=== PATIENT | male | born 1955 | race Caucasian/White ===

== ENCOUNTER → 2017-10-23 07:14 | Outpatient (CLI) | payer OTHER, SELFPAY ==
--- NOTE | 2017-10-23 07:14 | DT_ITS ---
This patient was seen during an EMR downtime October 21, 2017 - October 28, 2017. This patient may have a combination of paper and electronic documentation or all paper documentation. All documentation is viewable within the e-chart portion of [employer] for each patient visit.
[2017-10-28 11:32] LABS: ALB/GLOB Ratio 0.9 RATIO (0.9-2.4); AST(SGOT) 29 U/L (15-37); Alanine Aminotransfer ALT/SGPT 52 U/L (16-61); Albumin, Serum 3.5 g/dL (3.2-5.0); Alkaline Phosphatase 114 U/L (45-117); Anion Gap 10 (5-15); BUN 14 mg/dL (7-18); BUN/Creat Ratio 14.9 RATIO (10-20); Calcium,Total 8.6 mg/dL (8.5-10.1); Chloride 104 mmol/L (98-107); Cholesterol 201 mg/dL (200); Creatinine, Serum 0.94 mg/dL (0.70-1.30); EST Glomerular Filtration Rate 86 mL/min (>60); Est Glom Filt Rate - Afr Amer 104 mL/min (>60); Globulin 4.1 g/dL (2.2-4.2); Glucose 220 mg/dL (74-106); High Density Lipoprotein 32 mg/dL; Potassium 4.1 mmol/L (3.5-5.1); Protein, Total 7.6 g/dL (6.4-8.2); Sodium Level 139 mmol/L (136-145); Triglycerides 289 mg/dL; Very Low Density Lipoprotein 58 mg/dL (5-40)
== END ==
PROVIDERS: Family Provider Family Medicine; PCP Family Medicine; Visit Provider Family Medicine
DX: I10 Essential (primary) hypertension (principal)
CPT/HCPCS: 36415; 80053; 80061

== ENCOUNTER → 2017-11-01 07:00 | Outpatient (CLI) | payer OTHER, SELFPAY | PROVIDERS: Family Provider Family Medicine; PCP Family Medicine; Visit Provider Family Medicine | DX: E11.9 Type 2 diabetes mellitus without complications (principal) | CPT/HCPCS: 36415; 83036 ==

== ENCOUNTER → 2018-03-03 11:44 | Outpatient (CLI) | payer OTHER, SELFPAY ==
[2018-03-03 13:31] LABS: Hemoglobin A1c 7.1 % (4.2-6.3)
== END ==
PROVIDERS: Family Provider Family Medicine; PCP Family Medicine; Referring Provider Nurse Practitioner; Visit Provider Nurse Practitioner
DX: E11.9 Type 2 diabetes mellitus without complications (principal)
CPT/HCPCS: 36415; 83036

== ENCOUNTER → 2018-06-03 10:29 | Outpatient (CLI) | payer OTHER, SELFPAY ==
[2018-06-03 09:53] VITALS: BMI 37.0
[2018-06-03 12:07] LABS: Microalbumin,Random Urine 29.1 mg/L (NO RANGE EST.); Microalbumin:Creatinine Ratio 18.5 mg/g CRE (<30 mg/g CRE)
[2018-06-03 12:09] LABS: Hemoglobin A1c 8.2 % (4.2-6.3)
[2018-06-03 12:14] LABS: ALB/GLOB Ratio 0.9 RATIO (0.9-2.4); AST(SGOT) 25 U/L (15-37); Alanine Aminotransfer ALT/SGPT 43 U/L (16-61); Albumin, Serum 3.7 g/dL (3.2-5.0); Alkaline Phosphatase 118 U/L (45-117); Anion Gap 9 (5-15); BUN 19 mg/dL (7-18); Calcium,Total 9.3 mg/dL (8.5-10.1); Chloride 102 mmol/L (98-107); Creatinine, Serum 0.95 mg/dL (0.70-1.30); EST Glomerular Filtration Rate 85 mL/min (>60); Est Glom Filt Rate - Afr Amer 103 mL/min (>60); Globulin 4.3 g/dL (2.2-4.2); Glucose 156 mg/dL (74-106); Potassium 4.1 mmol/L (3.5-5.1); Sodium Level 138 mmol/L (136-145)
== END ==
PROVIDERS: Family Provider Family Medicine; PCP Family Medicine; Referring Provider Nurse Practitioner; Visit Provider Nurse Practitioner
DX: E11.65 Type 2 diabetes mellitus with hyperglycemia (principal)
CPT/HCPCS: 36415; 80053; 82043; 82570; 83036

== ENCOUNTER → 2019-01-06 | Outpatient (CLI) | payer OTHER, SELFPAY ==
[2019-01-06 08:20] VITALS: BMI 36.6
--- NOTE | 2019-01-06 09:12 | RAD_ITS ---
STUDY: X-RAY - PELVIS AND RIGHT HIP REASON FOR EXAM: Male, 63 years old. Right hip pain for 2 weeks duration TECHNIQUE: 3 views of the pelvis and hip. COMPARISON: None. FINDINGS: There is a non-specific bowel gas pattern. Normal visualized soft tissue structures. Intact bilateral iliac wings, sacroiliac joints and visualized sacrum. Intact bilateral superior and inferior pubic rami. Mild pubic symphysitis Normal bilateral ischial tuberosities. Mild osteoarthritis of the right hip joint RAD/Hip uni 4+ views with Pelvis IMPRESSION: Mild osteoarthritis of the right hip joint. No acute displaced fracture, or traumatic subluxation based on current assessment. Electronically Signed: Ray Gotti MD at 15:04 EDT Tel [phone], Service support ,
[2019-01-06 12:34] LABS: Uric Acid 7.5 mg/dL (3.5-7.2)
== END | disposition home or self-care (01) ==
PROVIDERS: Family Provider Family Medicine; PCP Family Medicine; Referring Provider Nurse Practitioner Family; Visit Provider Nurse Practitioner Family
DX: M25.551 Pain in right hip (principal)
CPT/HCPCS: 36415; 73503; 84550

== ENCOUNTER → 2019-01-07 | Outpatient (CLI) | payer OTHER, SELFPAY ==
[2019-01-07 14:38] VITALS: BMI 36.6
--- NOTE | 2019-01-07 14:53 | RAD_ITS ---
STUDY: X-RAY - LUMBOSACRAL SPINE REASON FOR EXAM: Male, 63 years old. Back pain. TECHNIQUE: 6 view(s) of the lumbosacral spine were obtained. COMPARISON: None FINDINGS: There is no evidence of fracture or dislocation in the lumbosacral spine. The vertebral body heights are well-maintained. There are mild multilevel degenerative changes with disc space narrowing throughout the lumbar spine. There are atherosclerotic calcifications noted in the aorta. RAD/L/S Spine Bending Flex/Ext IMPRESSION: No fracture or dislocation in the lumbosacral spine. Mild degenerative changes throughout the lumbar spine. Atherosclerosis. Electronically Signed: Chano Ratliff, at 20:36 EDT Tel , Service support ,
== END | disposition home or self-care (01) ==
LOC: HPRAD 14:52
PROVIDERS: Family Provider Family Medicine; PCP Family Medicine; Referring Provider Orthopaedic Surgery; Visit Provider Orthopaedic Surgery
DX: M54.41 Lumbago with sciatica, right side (principal)
CPT/HCPCS: 72120

== ENCOUNTER 2019-01-15 06:54 | Outpatient (RCR) | payer OTHER, SELFPAY ==
[2019-01-07 14:38] VITALS: BMI 36.6
--- NOTE | 2019-01-15 09:25 | HP.PTEVAL ---
Patient's Visit Information JULIUS DURANT Jr. is a 63 year old M referred to Physical Therapy by Omer Dowd DO with a diagnosis of R sided lumbar spine. Date of Evaluation: 01/15/19 Physical Therapist: Jan Wade DPT - Visit Plan Frequency: 2x /Week Duration: 4 Weeks Plan: Start with SKTC and prone on elbows, progressing ROM as tolerated. Add in modalities, progressing core stability exercises as tolerated. - Subjective Findings: Pt. is here today for his initial evaluaton with diagnosis of Low back pain on R side. Pt. reports having increased pain or ~3 weeks after getting into his bobcat. Pt. reports no exact mech of injury. Pt. reports no pain to the touch. Its deep down.' He reported having some tingling in his R leg, but not entirely sure. Pt. has not gone to the chiropractor, due to high levels of pain. Pt. reports having a recent injection which has reduced some of his symptoms. He is also scheduled for an MRI next week. 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 Pt. is having increasred difficulty with sleeping and pain in worse in the morning. Pt. is hopeful to reduce symptoms in order to get back to work and recreational activities without increase in symptoms. - Pain R side of lumbar spine Pain Intensity (Out of 10): 3 Pain Intensity Range: 1, 6 - Objective POSTURE: pt. is generally over wt. Pt. has generalized flexed posture. Pt. has normal hip heights. Pt. has equal wt. shift between bilateral LEs. PALPATION: Pt. has increased tenderness at L1/L2 and hypomobility noted. NEURO: normal throughout. ROM: LUMBAR SPINE: extension mod/max loss increase NW, fleixon mod/min loss increase NW, SB L min loss increase NW, rotaition min/nil loss NE. NHS tightness bilaterally NE. Tight hip flexors bilaterally. Pt. has normal hip IR/ER without increase in groin pain. MMT: Pt. is generally 4+/5 throughout bilaterally LEs, execpt knee- 5/5 throughout. GAIT: Pt. ambulates with increased fall off onto R side, no [place]. Pt. has mild increase in symptoms with ambulation. - Special Tests L/S Slump test left side: Negative L/S Slump test right side: Positive L/S Left Straight Leg Raise: Negative L/S Right Straight Leg Raise: Positive - Goals Goal 1:: Pt. to be I with HEP. Goal Time Frame: 4-6 Weeks Goal 2:: Pt. to have increased lumbar spine ROM by 25% in all directions without increase in symptoms. Goal Time Frame: 4-6 Weeks Goal 3:: Pt. to have increased core and hip strength by 1/2 grade of all effected musculature. Goal Time Frame: 4-6 Weeks Goal 4:: Pt. to sleep without increase in symptoms. Goal Time Frame: 4-6 Weeks Goal 5:: Pt. to complete all work and recreational activities. Goal Time Frame: 4-6 Weeks - Rehabilitation Potential Physical Therapy Diagnosis: Pt. has signs and symptoms consistent with R sided lumbar spine pain. Pt. appears to have increased pain with extension, but did improve with consistent extension movements with centralization. Pt. had + slump and did have centralization of symptoms with prone on elbows, but did peripheralize with REIL. Pt. would benefit from PT to increase lumbar ROM, progressing to core stability exercises. Rehabilitation Potential: Good - Anticipated Interventions Patient/Client Instruction: Educate patient on: Condition, Plan of Care, Risk Factors, Benefits of Fitness Program For the Purpose of:: To facilitate caregiver knowledge, To improve self management, To prevent re-injury, To improve ability to perform tasks related to life management, To improve tolerance to ADL's Therapeutic Exercise to Include: Strength training, Power training, Endurance training, Postural training, Flexibilty training, Passive ROM, Active ROM, Dynamic Lumbar Stabilization, Prerna Exercises For the Purpose of:: To decrease pain, To decrease swelling/inflammation, To increase ROM, To improve nutrient delivery to tissue, To increase oxygenation perfusion, To improve ability to perform ADL's, To improve health of tissue, To decrease soft tissue restriction, To increase flexibility/ROM Manual Therapy Techniques to Include: Mobilization, Functional dry needling, Soft tissue mobilization For the Purpose of:: To decrease pain, To increase ROM, To improve nutrient delivery to tissue, To increase oxygenation perfusion IF ES: Yes Other electric stimulation: Yes Cryotherapy (ice pack, ice massage): Yes For the Purpose of:: To decrease pain, To decrease swelling/inflammation, To increase ROM Thank you for the opportunity to evaluate your patient. For Medicare and Medicare HMO plans, please review the plan of care and approve it. It will need to be FAXED BACK to us at [phone] for Medicare purposes. For Medicare only, by signing this I certify the plan of care. Please let me know if there are questions or concerns regarding this plan of care. Physician Signature: Date:
--- NOTE | 2019-06-23 09:55 | HP.PT.NRP ---
HP - Discharge Summary (1) - Patient Information JULIUS DURANT Jr. was seen in my office for initial evaluation on 01/15/19. The following Plan of Care was established for this patient: Initial Frequency: 2x /Week Initial Duration: 4 Weeks - Anticipated Interventions Patient/Client Instruction: Educate patient on: Condition, Plan of Care, Risk Factors, Benefits of Fitness Program For the Purpose of:: To facilitate caregiver knowledge, To improve self management, To prevent re-injury, To improve ability to perform tasks related to life management, To improve tolerance to ADL's Therapeutic Exercise to Include: Strength training, Power training, Endurance training, Postural training, Flexibilty training, Passive ROM, Active ROM, Dynamic Lumbar Stabilization, Prerna Exercises For the Purpose of:: To decrease pain, To decrease swelling/inflammation, To increase ROM, To improve nutrient delivery to tissue, To increase oxygenation perfusion, To improve ability to perform ADL's, To improve health of tissue, To decrease soft tissue restriction, To increase flexibility/ROM Manual Therapy Techniques to Include: Mobilization, Functional dry needling, Soft tissue mobilization For the Purpose of:: To decrease pain, To increase ROM, To improve nutrient delivery to tissue, To increase oxygenation perfusion IF ES: Yes Other electric stimulation: Yes Cryotherapy (ice pack, ice massage): Yes For the Purpose of:: To decrease pain, To decrease swelling/inflammation, To increase ROM This patient was last seen in our office 01/15/19. Pertinent comments regarding their Physical therapy will appear below: Pt. was seen for his low back pain. Pt. came to his evaluation and has not been back since. Pt. will be DC from PT at this point in time. At this point I will be discontinuing this patient from physical therapy. I would be happy to see this patient again in the future if found appropriate by the physician. Thank you! Jan Wade DPT
== END 2019-01-15 19:00 | disposition home or self-care (01) ==
LOC: PT 06:54
PROVIDERS: Family Provider Family Medicine; PCP Family Medicine; Referring Provider Orthopaedic Surgery; Visit Provider Orthopaedic Surgery
DX: M54.5 Low back pain (principal)
CPT/HCPCS: 97161

== ENCOUNTER → 2019-01-20 | Outpatient (CLI) | payer OTHER, SELFPAY ==
[2019-01-07 14:38] VITALS: BMI 36.6
[2019-01-20 10:59] VITALS: BMI 36.6
--- NOTE | 2019-01-20 13:19 | VDLE_ITS ---
Reason For Study: pain and swelling RIGHT LEFT CFV is compressible, spontaneous, phasic, GSV is normal. competent and demonstrates normal CFV is compressible, spontaneous, phasic, augmentation. competent, and demonstrates normal augmentation. FV is compressible, spontaneous, phasic, competent and demonstrates normal augmentation. POP V is compressible, spontaneous, phasic, competent and demonstrates normal augmentation. T/P Trunk is compressible. PTV is compressible. LT PerV is compressible. Interpretation Summary Deep veins of the left lower extremity are patent and compressible segmentally. There is no evidence of left lower extremity deep vein thrombosis. Valvular competence appears intact within the proximal deep venous system on the left . The left great saphenous vein appears patent and compressible segmentally. Ordering Physician: Reggie Allen Performed By: Carl Vila RVT
--- NOTE | 2019-01-20 16:55 | MRI_ITS ---
HISTORY: Low back pain and right-sided lumbar radiculopathy 3 weeks COMPARISON: Lumbar radiographs 01/07/2019 TECHNIQUE: Multisequence multiplanar MR imaging of the lumbar spine was performed per department protocol without IV gadolinium. # of images incl. paperwork: 139 FINDINGS: VERTEBRA: Lumbar alignment is within normal limits . No acute fracture or subluxation. Lumbar vertebral bodies are normal in height. Mild anterior marginal osteophytes from L2-L5. Benign osseous hemangiomas within T12, L1, and L2 vertebra with the largest within the L1 vertebra measuring 1.0 cm. No focal marrow signal abnormality to suggest a pathologic process. CONUS: The conus is identified opposite the T12-L1 level and is normal in morphology and signal characteristics. DISCS: Mild disc space narrowing at L4-L5 and L5-S1 levels. Moderate disc desiccation throughout the lumbar spine. LEVELS: T12-L1: No disc bulge or disc protrusion. No canal or neural foraminal stenosis. L1-2: No disc bulge or disc protrusion. No canal or neural foraminal stenosis. L2-3: Mild disc bulge with less than 1 mm effacement of the ventral thecal sac. No superimposed disc protrusion. No canal or foraminal stenosis. L3-4: Mild disc bulge without significant effacement of the ventral thecal sac. No superimposed disc protrusion. No canal or foraminal stenosis. Mild bilateral facet joint arthropathy. L4-5: Right sided disc extrusion measuring up to 10 mm TV, 7 mm AP, and 25 mm CC dimensions extending cephalad to the superior endplate level of L4, combined with moderate bilateral facet joint arthropathy and ligamentum flavum redundancy, results in severe canal stenosis and severe right foraminal stenosis at L4-L5 and moderate canal stenosis throughout the majority of the L4 vertebral body level. Severe effacement of the traversing right L4 nerve root is seen at the mid L4 vertebral body level. No left foraminal stenosis. L5-S1: No disc bulge or disc protrusion. No canal or neural foraminal stenosis. SOFT TISSUES: Paravertebral soft tissues show no gross signal abnormalities. MRI/Spine Lumbar (Routine) IMPRESSION: 1. Large right-sided disc extrusion (10 x 7 x 25 mm) at the L4-L5 level, which extends cephalad to the right superior endplate level of L4 resulting in severe canal and severe right foraminal stenosis at the L4-L5 level; and moderate canal stenosis throughout the L4 vertebral body level, and severe effacement of the traversing right L4 nerve root at the mid L4 vertebral body level. at 2111 Reported and signed by: Ran Novak MD Electronically Signed: Ran Novak MD at 21:09 EDT Tel , Service support ,
== END | disposition home or self-care (01) ==
PROVIDERS: Family Provider Family Medicine; PCP Family Medicine; Referring Provider Nurse Practitioner Family; Visit Provider Nurse Practitioner Family
DX: M79.605 Pain in left leg (principal); M79.89 Other specified soft tissue disorders; M54.41 Lumbago with sciatica, right side
CPT/HCPCS: 72148; 93971

== ENCOUNTER → 2019-04-29 10:07 | Outpatient (CLI) | payer OTHER, SELFPAY ==
[2019-04-29 09:49] VITALS: BMI 36.6
[2019-04-29 12:28] LABS: ALB/GLOB Ratio 0.9 RATIO (0.9-2.4); AST(SGOT) 27 U/L (15-37); Alanine Aminotransfer ALT/SGPT 54 U/L (16-61); Albumin, Serum 3.7 g/dL (3.2-5.0); Alkaline Phosphatase 102 U/L (45-117); Anion Gap 6 (5-15); BUN 20 mg/dL (7-18); BUN/Creat Ratio 18.7 RATIO (10-20); Calcium,Total 9.2 mg/dL (8.5-10.1); Chloride 104 mmol/L (98-107); Creatinine, Serum 1.07 mg/dL (0.70-1.30); EST Glomerular Filtration Rate 74 mL/min (>60); Est Glom Filt Rate - Afr Amer 90 mL/min (>60); Globulin 3.9 g/dL (2.2-4.2); Glucose 212 mg/dL (74-106); Potassium 3.9 mmol/L (3.5-5.1); Protein, Total 7.6 g/dL (6.4-8.2); Sodium Level 138 mmol/L (136-145)
[2019-04-29 12:39] LABS: Microalbumin,Random Urine 9.5 mg/L (NO RANGE EST.); Microalbumin:Creatinine Ratio 22.8 mg/g CRE (<30 mg/g CRE)
== END ==
PROVIDERS: Family Provider Family Medicine; PCP Family Medicine; Visit Provider Family Medicine
DX: E11.9 Type 2 diabetes mellitus without complications (principal); I10 Essential (primary) hypertension
CPT/HCPCS: 36415; 80053; 82043; 82570

== ENCOUNTER → 2019-10-29 | Outpatient (CLI) | payer OTHER, SELFPAY ==
[2019-10-29 09:15] VITALS: BMI 36.6
== END | disposition home or self-care (01) ==
PROVIDERS: PCP Family Medicine; Referring Provider Family Medicine; Visit Provider Family Medicine
DX: R35.0 Frequency of micturition (principal)
CPT/HCPCS: 36415; 84153

== ENCOUNTER → 2020-08-02 08:53 | Outpatient (CLI) | payer OTHER, SELFPAY ==
[2020-08-02 08:31] VITALS: BMI 36.6
[2020-08-02 13:53] LABS: ALB/GLOB Ratio 0.9 RATIO (0.9-2.4); AST(SGOT) 34 U/L (15-37); Alanine Aminotransfer ALT/SGPT 75 U/L (16-61); Albumin, Serum 3.7 g/dL (3.2-5.0); Alkaline Phosphatase 111 U/L (45-117); Anion Gap 9 (5-15); BUN 19 mg/dL (7-18); BUN/Creat Ratio 14.4 RATIO (10-20); Calcium,Total 9.6 mg/dL (8.5-10.1); Chloride 103 mmol/L (98-107); Cholesterol 201 mg/dL (200); Creatinine, Serum 1.32 mg/dL (0.70-1.30); EST Glomerular Filtration Rate 58 mL/min (>60); Est Glom Filt Rate - Afr Amer 70 mL/min (>60); Glucose 260 mg/dL (74-106); High Density Lipoprotein 35 mg/dL; Potassium 4.5 mmol/L (3.5-5.1); Protein, Total 7.7 g/dL (6.4-8.2); Sodium Level 137 mmol/L (136-145); Triglycerides 370 mg/dL; Very Low Density Lipoprotein 74 mg/dL (5-40)
== END ==
PROVIDERS: PCP Family Medicine; Referring Provider Family Medicine; Visit Provider Family Medicine
DX: E11.9 Type 2 diabetes mellitus without complications (principal)
CPT/HCPCS: 36415; 80053; 80061

== ENCOUNTER → 2020-09-12 | Outpatient (CLI) | payer OTHER, SELFPAY ==
[2020-09-12 12:57] VITALS: BMI 35.2
[2020-09-12 13:42] LABS: Bacteria 0 SEEN /hpf (None Seen); Mucous, Urine 0 SEEN /hpf (<or=2+); Red Blood Cells-Urine 0 SEEN /hpf (0-5); Squamous Epithelial Cells - UA 0 SEEN /hpf (0-5); White Blood Cells 0 SEEN /hpf (0-5)
[2020-09-12 15:26] LABS: Color, Urine Yellow (Yellow); Glucose, Dipstick 100 mg/dl (Normal); Ketone-Dipstick Negative (Negative); Leukocyte Esterase-Dipstick Negative /ul (Negative); Nitrite-Dipstick Negative (Negative); Occult Blood-Urine Negative /ul (Negative); Protein-Dipstick Negative (Negative); Urine Bilirubin Dipstick Negative (Negative); Urine Clarity Clear (Clear); Urine Urobilinogen Normal (Normal)
== END | disposition home or self-care (01) ==
PROVIDERS: PCP Family Medicine; Visit Provider Physician Assistant
DX: R10.9 Unspecified abdominal pain (principal)
CPT/HCPCS: 81001

== ENCOUNTER → 2020-09-16 07:14 | Outpatient (CLI) | payer OTHER, SELFPAY ==
[2020-09-12 12:57] VITALS: BMI 35.2
--- NOTE | 2020-09-16 07:20 | CT_ITS ---
STUDY: CT ABDOMEN AND PELVIS WITHOUT CONTRAST REASON FOR EXAM: Male, 64 years old. Left flank pain, R/O Kidney Stone RADIATION DOSAGE (If Supplied By Facility): CTDIvol = ( 20.59 ) mGy, DLP = ( 1090.65 ) mGycm TECHNIQUE: Transaxial images were obtained from the dome of the diaphragm to the symphysis pubis without oral contrast, and without intravenous contrast. Sagittal and coronal images were reconstructed. Individualized dose optimization techniques were used for this CT. COMPARISON: None. FINDINGS: The visualized lung bases are unremarkable. Normal liver. Normal gallbladder and extrahepatic biliary system. Normal spleen. Normal pancreas. Normal bilateral adrenal glands. Unremarkable right kidney. There is moderate hydroureteronephrosis on the left. There is an 8 mm calcification at the distal ureter adjacent to the urinary bladder (axial image #152 series 2) Normal visualized stomach. Normal small intestine. There are multiple colonic diverticula consistent with diverticulosis. The appendix is visualized and appears normal. There is atherosclerotic calcifications of the abdominal aorta, Normal urinary bladder. There is a small umbilical hernia containing fat. There are diffuse degenerative changes of the visualized lumbar spine. CT/Abdomen/Pelvis without Cont IMPRESSION: 8mm distal ureteral calculus with moderate hydroureteronephrosis on the left. Diverticulosis. Electronically Signed: Rosa Cortés MD at 8:15 EDT Tel , Service support ,
== END ==
PROVIDERS: PCP Family Medicine; Referring Provider Physician Assistant; Visit Provider Physician Assistant
DX: R10.9 Unspecified abdominal pain (principal)
CPT/HCPCS: 74176

== ENCOUNTER → 2020-09-27 14:54 | Outpatient (CLI) | payer OTHER, SELFPAY ==
[2020-09-12 12:57] VITALS: BMI 35.2
== END ==
PROVIDERS: PCP Family Medicine; Referring Provider Urology; Visit Provider Urology
DX: Z01.812 Encounter for preprocedural laboratory examination (principal); Z20.822 Contact with and (suspected) exposure to COVID-19
CPT/HCPCS: 87426; C9803

== ENCOUNTER → 2020-10-03 08:11 | Outpatient (CLI) | payer OTHER, SELFPAY ==
[2020-09-12 12:57] VITALS: BMI 35.2
--- NOTE | 2020-10-03 08:36 | RAD_ITS ---
STUDY: X-RAY - ABDOMEN/PELVIS REASON FOR EXAM: Male, 65 years old. Flank pain TECHNIQUE: Two AP supine views of the abdomen and pelvis. COMPARISON: None. FINDINGS: Normal visualized lung bases. There is an unremarkable bowel gas pattern. There is no demonstrated free abdominal air. The visualized liver, spleen and kidneys are grossly normal in size and morphology. There are calcified phleboliths in the pelvis. There are diffuse degenerative changes of the visualized lumbar spine. RAD/Abdomen Single View IMPRESSION: No demonstrated calcifications overlying either renal shadow, or along the expected course of either ureter. Stable lucent centered calcification within the right hemipelvis, likely phlebolith Electronically Signed: Jeremiah Taylor MD at 10:08 EDT , Service support ,
[2020-10-03 11:05] LABS: Anion Gap 10 (5-15); BUN 42 mg/dL (7-18); BUN/Creat Ratio 22.6 RATIO (10-20); Calcium,Total 9.3 mg/dL (8.5-10.1); Chloride 100 mmol/L (98-107); Creatinine, Serum 1.86 mg/dL (0.70-1.30); EST Glomerular Filtration Rate 39 mL/min (>60); Est Glom Filt Rate - Afr Amer 47 mL/min (>60); Glucose 334 mg/dL (74-106); Potassium 4.4 mmol/L (3.5-5.1); Sodium Level 134 mmol/L (136-145)
== END ==
PROVIDERS: PCP Family Medicine; Referring Provider Urology; Visit Provider Urology
DX: N20.1 Calculus of ureter (principal)
CPT/HCPCS: 36415; 74018; 80048

== ENCOUNTER → 2020-10-11 06:51 | Outpatient (CLI) | payer OTHER, SELFPAY ==
[2020-09-12 12:57] VITALS: BMI 35.2
--- NOTE | 2020-10-11 06:56 | CT_ITS ---
STUDY: CT ABDOMEN AND PELVIS WITHOUT CONTRAST REASON FOR EXAM: Male, 65 years old. CALCULUS OF URETER RADIATION DOSAGE (If Supplied By Facility): CTDIvol = ( 29.89 ) mGy, DLP = ( 1538.21 ) mGycm TECHNIQUE: Transaxial images were obtained from the dome of the diaphragm to the symphysis pubis without oral contrast, and without intravenous contrast. Sagittal and coronal images were reconstructed. Individualized dose optimization techniques were used for this CT. COMPARISON: CT scan 09/16/2020. FINDINGS: There is a calcified pulmonary granuloma in the right middle lobe. The visualized portions of the heart are within normal limits. Normal liver. Normal gallbladder and extrahepatic biliary system. Normal spleen. Normal pancreas. Normal bilateral adrenal glands. Normal right kidney. Normal left kidney. Normal visualized stomach. Normal small intestine. There are multiple colonic diverticula consistent with diverticulosis. The appendix is visualized on axial images 110-121 and it appears normal. There is diffuse atherosclerotic calcification of the abdominal aorta, without a demonstrated aneurysm. Normal inferior vena cava. Normal retroperitoneum. Normal urinary bladder. There is an umbilical hernia which contains fat, but no bowel. There multilevel degenerative changes of the lumbar spine. CT/Abdomen/Pelvis without Cont IMPRESSION: Colonic diverticulosis, without evidence for acute diverticulitis. Atherosclerosis. Umbilical hernia contains fat, but no bowel. No evidence for acute pathology. No demonstrated urinary calculus or hydronephrosis. Electronically Signed: Jd Burks MD at 7:56 EDT , Service support ,
[2020-10-11 10:08] LABS: Anion Gap 10 (5-15); BUN 30 mg/dL (7-18); BUN/Creat Ratio 16.3 RATIO (10-20); Calcium,Total 9.6 mg/dL (8.5-10.1); Chloride 98 mmol/L (98-107); Creatinine, Serum 1.84 mg/dL (0.70-1.30); EST Glomerular Filtration Rate 39 mL/min (>60); Est Glom Filt Rate - Afr Amer 48 mL/min (>60); Glucose 330 mg/dL (74-106); PSA,Total- Diagnostic 0.26 ng/mL (0.0-4.0); Potassium 4.4 mmol/L (3.5-5.1); Sodium Level 135 mmol/L (136-145)
== END ==
PROVIDERS: PCP Family Medicine; Referring Provider Urology; Visit Provider Urology
DX: N20.1 Calculus of ureter (principal)
CPT/HCPCS: 36415; 74176; 80048; 84153

== ENCOUNTER → 2020-11-22 09:36 | Outpatient (CLI) | payer OTHER, SELFPAY ==
[2020-11-22 08:54] VITALS: BMI 35.2
[2020-11-22 12:21] LABS: Anion Gap 8 (5-15); BUN 26 mg/dL (7-18); BUN/Creat Ratio 17.7 RATIO (10-20); Calcium,Total 9.6 mg/dL (8.5-10.1); Chloride 102 mmol/L (98-107); Creatinine, Serum 1.47 mg/dL (0.70-1.30); EST Glomerular Filtration Rate 51 mL/min (>60); Est Glom Filt Rate - Afr Amer 62 mL/min (>60); Glucose 269 mg/dL (74-106); Potassium 4.5 mmol/L (3.5-5.1); Sodium Level 134 mmol/L (136-145)
== END ==
PROVIDERS: PCP Family Medicine; Visit Provider Family Medicine
DX: N18.1 Chronic kidney disease, stage 1 (principal)
CPT/HCPCS: 36415; 80048

== ENCOUNTER → 2021-02-22 08:58 | Outpatient (CLI) | payer OTHER, SELFPAY ==
[2021-02-22 13:20] LABS: Hemoglobin A1c 10.3 % (3.8-5.6)
== END ==
PROVIDERS: PCP Family Medicine; Referring Provider Family Medicine; Visit Provider Family Medicine
DX: E11.8 Type 2 diabetes mellitus with unspecified complications (principal)
CPT/HCPCS: 36415; 83036

== ENCOUNTER 2021-03-15 10:02 | Outpatient (RCR) | payer OTHER, SELFPAY | END 2021-03-19 23:59 | LOC: DC 10:02 | PROVIDERS: PCP Family Medicine; Visit Provider Family Medicine | DX: E11.8 Type 2 diabetes mellitus with unspecified complications (principal); E66.9 Obesity, unspecified; Z68.35 Body mass index [BMI] 35.0-35.9, adult | CPT/HCPCS: G0108 ==

== ENCOUNTER 2021-04-12 09:30 | Outpatient (RCR) | payer OTHER, SELFPAY | END 2021-04-18 23:59 | LOC: DC 09:30 | PROVIDERS: PCP Family Medicine; Visit Provider Family Medicine | DX: E11.8 Type 2 diabetes mellitus with unspecified complications (principal); E66.9 Obesity, unspecified; Z68.35 Body mass index [BMI] 35.0-35.9, adult | CPT/HCPCS: 97802; G0108; G0270 ==

== ENCOUNTER 2021-05-25 10:00 | Outpatient (RCR) | payer OTHER, SELFPAY | END 2021-06-19 23:59 | LOC: DC 10:00 | PROVIDERS: PCP Family Medicine; Visit Provider Family Medicine | DX: Z68.35 Body mass index [BMI] 35.0-35.9, adult (principal); E11.8 Type 2 diabetes mellitus with unspecified complications; E66.9 Obesity, unspecified; Z71.3 Dietary counseling and surveillance | CPT/HCPCS: 97803; G0108 ==

== ENCOUNTER 2021-07-11 09:30 | Outpatient (RCR) | payer OTHER, SELFPAY | END 2021-07-17 23:59 | LOC: DC 09:30 | PROVIDERS: PCP Family Medicine; Referring Provider Family Medicine; Visit Provider Family Medicine | DX: E11.8 Type 2 diabetes mellitus with unspecified complications; E66.9 Obesity, unspecified; Z68.35 Body mass index [BMI] 35.0-35.9, adult | CPT/HCPCS: 97803; G0108 ==

== ENCOUNTER 2021-08-15 08:20 | Outpatient (RCR) | payer OTHER, SELFPAY | END 2021-08-17 23:59 | LOC: DC 08:20 | PROVIDERS: PCP Family Medicine; Referring Provider Family Medicine; Visit Provider Family Medicine | DX: E11.8 Type 2 diabetes mellitus with unspecified complications; E66.9 Obesity, unspecified; Z68.35 Body mass index [BMI] 35.0-35.9, adult | CPT/HCPCS: 97803 ==

== ENCOUNTER → 2022-02-01 | Outpatient (CLI) | payer OTHER, SELFPAY ==
[2022-02-01 13:12] LABS: Microalbumin,Random Urine < 5.0 mg/L (NO RANGE EST.)
[2022-02-01 13:17] LABS: ALB/GLOB Ratio 0.8 RATIO (0.9-2.4); AST(SGOT) 17 U/L (15-37); Alanine Aminotransfer ALT/SGPT 35 U/L (16-61); Albumin, Serum 3.6 g/dL (3.2-5.0); Alkaline Phosphatase 106 U/L (45-117); Anion Gap 7 (5-15); BUN 25 mg/dL (7-18); BUN/Creat Ratio 18.2 RATIO (10-20); Calcium,Total 9.5 mg/dL (8.5-10.1); Chloride 101 mmol/L (98-107); Cholesterol 202 mg/dL (200); Creatinine, Serum 1.37 mg/dL (0.70-1.30); EST Glomerular Filtration Rate 55 mL/min (>60); Est Glom Filt Rate - Afr Amer 67 mL/min (>60); Globulin 4.3 g/dL (2.2-4.2); Glucose 183 mg/dL (74-106); High Density Lipoprotein 34 mg/dL; Potassium 4.8 mmol/L (3.5-5.1); Protein, Total 7.9 g/dL (6.4-8.2); Sodium Level 135 mmol/L (136-145); Triglycerides 423 mg/dL
== END | disposition home or self-care (01) ==
LOC: BIMLAB 08:56
PROVIDERS: PCP Family Medicine; Referring Provider Family Medicine; Visit Provider Family Medicine
DX: E11.8 Type 2 diabetes mellitus with unspecified complications (principal); I10 Essential (primary) hypertension
CPT/HCPCS: 36415; 80053; 80061; 82043; 82570

== ENCOUNTER → 2023-02-06 | Outpatient (CLI) | payer OTHER, SELFPAY ==
[2023-02-06 13:07] LABS: ALB/GLOB Ratio 1.1 RATIO (0.9-2.4); AST(SGOT) 15 U/L (15-37); Alanine Aminotransfer ALT/SGPT 28 U/L (16-61); Albumin, Serum 3.8 g/dL (3.2-5.0); Alkaline Phosphatase 103 U/L (45-117); Anion Gap 6 (5-15); BUN 31 mg/dL (7-18); BUN/Creat Ratio 21.2 RATIO (10-20); Calcium,Total 9.6 mg/dL (8.5-10.1); Chloride 101 mmol/L (98-107); Cholesterol 169 mg/dL (200); Creatinine, Serum 1.46 mg/dL (0.70-1.30); EST Glomerular Filtration Rate 51 mL/min (>60); Est Glom Filt Rate - Afr Amer 62 mL/min (>60); Globulin 3.6 g/dL (2.2-4.2); Glucose 208 mg/dL (74-106); High Density Lipoprotein 37 mg/dL; Potassium 4.7 mmol/L (3.5-5.1); Protein, Total 7.4 g/dL (6.4-8.2); Sodium Level 135 mmol/L (136-145); Triglycerides 379 mg/dL; Very Low Density Lipoprotein 76 mg/dL (5-40)
== END | disposition home or self-care (01) ==
LOC: BIMLAB 09:25
PROVIDERS: PCP Family Medicine; Referring Provider Family Medicine; Visit Provider Family Medicine
DX: I10 Essential (primary) hypertension (principal); E11.9 Type 2 diabetes mellitus without complications
CPT/HCPCS: 36415; 80053; 80061

== ENCOUNTER → 2023-08-06 | Outpatient (CLI) | payer OTHER, SELFPAY ==
[2023-08-06 12:34] LABS: Anion Gap 8 (5-15); BUN 25 mg/dL (7-18); BUN/Creat Ratio 18.2 RATIO (10-20); Calcium,Total 9.7 mg/dL (8.5-10.1); Chloride 101 mmol/L (98-107); Creatinine, Serum 1.37 mg/dL (0.70-1.30); EST Glomerular Filtration Rate 55 mL/min (>60); Est Glom Filt Rate - Afr Amer 67 mL/min (>60); Glucose 286 mg/dL (74-106); Potassium 4.5 mmol/L (3.5-5.1); Sodium Level 137 mmol/L (136-145)
== END | disposition home or self-care (01) ==
LOC: BIMLAB 08:48
PROVIDERS: PCP Family Medicine; Visit Provider Family Medicine
DX: N18.1 Chronic kidney disease, stage 1 (principal)
CPT/HCPCS: 36415; 80048

== ENCOUNTER 2024-02-18 07:04 | Day surgery (SDC) | payer OTHER, SELFPAY ==
[2024-02-18] VITALS (9 sets, daily range): BP systolic 80–126; BP diastolic 46–79; PULSE 58–71; RESP 16–18; TEMP 36.1–36.6; O2SAT 95–99; BMI 33.8
[2024-02-18] MEDS: Lactated Ringers 1,000 ML 15 ML IV (07:33)
--- NOTE | 2024-02-18 07:41 | PCM.PRE.AN2 ---
ASA Classification* ASA Classification ASA Classification: 3 Assessment & Plan Anesthesia* Anesthesia Assessment Anesthesia Assessment: Discussed sedation and/or anesthesia options, risks, benefits, and alternatives with patient/parents/legal guardian/POA. Questions invited. The patient/parents/legal guardian/POA seems to understand and agrees to proceed with anesthesia plan. Reviewed the physical assessment, medical history, allergy history and patient home medications list prior to surgery/procedure/anesthetic and documented any changes. Performed airway and anesthesia risk assessments. Anesthesia Type Anesthesia Type: MAC (see written pre anesthesia record for full assessment) Anesthesia Focused Assessment* Temperature: 97.2 F Pulse Rate: 65 Blood Pressure: 126/79 Respiratory Rate: 18 Pulse Ox: 98 Airway Assessment Mouth opens: >3 cm Mallampati Score: II Focused Labs Anesthesia Preop lab: CBC WBC 7.0 k/mm3 (4.4-11.0) 07/17/12 12:10 RBC 5.11 M/mm3 (4.6-6.2) 07/17/12 12:10 Hgb 15.2 g/dl (13.0-16.5) 07/17/12 12:10 Hct 45.6 % (40-54) 07/17/12 12:10 Plt Count 240 K/mm3 (150-450) 07/17/12 12:10 CHEMISTRY Potassium 4.5 mmol/L (3.5-5.1) 08/06/23 08:48 Sodium 137 mmol/L (136-145) 08/06/23 08:48 BUN 25 mg/dL (7-18) H 08/06/23 08:48 Creatinine 1.37 mg/dL (0.70-1.30) H 08/06/23 08:48 Glucose 286 mg/dL (74-106) H 08/06/23 08:48 COAG Pre-Assessment Diagnosis/Proposed Procedure Planned Operative Procedure(s): CSCOPE Anesthesia History Anesthesia History - special needs 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 When Was Last Pacemaker Check QUESTION #4 FULL TEXT: You/Your Family Experience fever (hyperthermia) with Anesthesia Last Oral Intake Last Oral intake: Last Oral Intake NPO since Meds taken in AM with sips of Yes 02/18/24 07:34 water? Meds patient instructed to take am of surgery PONV PONV - special needs child caregiver: PONV - special needs child caregiver Female No 02/14/24 10:00 HX of Motion Sickness Yes 02/14/24 10:00 HX of N/V After Surgery No 02/14/24 10:00 Non-Smoker Yes 02/14/24 10:00 Duration of Surgery greater No 02/14/24 10:00 than 60 minutes Number of Risk Factors 2 02/14/24 10:00 PONV Score Moderate Risk 02/14/24 10:00 Height & Weight Height & Weight: Anesthesia: Height & Weight Height 5 ft 9 in 02/18/24 07:34 Weight: 103.963 kg 02/18/24 07:34 Body Mass Index (BMI) 33.8 02/18/24 07:34 Respiratory Assessment Respiratory Assessment - special needs child caregiver: Respiratory Tract Infection Hx - special needs child caregiver Hx Respiratory Tract Infection No 02/14/24 10:00 STOP Sleep Apnea STOP Sleep Apnea - special needs child caregiver: STOP Sleep Apnea - special needs child caregiver Hx Hypertension Yes: CONTROLLED WITH MED 02/14/24 10:00 Hx Sleep Apnea Yes 02/14/24 10:00 CPAP Yes 02/14/24 10:00 BIPAP No 02/14/24 10:00 Do you snore loudly (louder than talking or can be heard Do you often feel tired/ fatigued/ sleepy during daytime? Has anyone observed you stop breathing during sleep? STOP Results Positive 02/14/24 10:00 QUESTION #5 FULL TEXT : Do you snore loudly (louder than talking or can be heard through closed doors)? 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 Specify any problems Hx of Preganancy in last 3 N/A 02/14/24 10:00 Months Nurse Filling Out Transfusion NBUCHER 02/14/24 10:00 & Questions: Date: 02/14/24 02/14/24 10:00 Time: 10:02 02/14/24 10:00 Patient unable to answer at this time (ie. confused, unrespo /Reproduction History /Reproductive History - special needs child caregiver: /Reproductive Hx- special needs child caregiver Hx Now Gestational Age (in weeks): EDC: Hx Hx Para Hx Section SAB Active Medications Active Medications: Current Medications Generic Name Dose Route Start Last Admin Trade Name Freq PRN Reason Stop Dose Admin Lactated Ringer's 1,000 mls @ 15 mls/hr 02/18/24 07:15 02/18/24 07:33 IV 15 mls/hr .Q48H MARYCHUY Administration PFSH Medical History Wears glasses Gout High cholesterol Kidney stones Non-smoker CPAP (continuous positive airway pressure) dependence Sleep apnea Asthma Injury of back Stroke (~2002) Diabetes Hypertension Anxiety Home Medications ?Medication ?Instructions ?Recorded ?Last Taken ?Type aspirin 325 mg tablet 325 mg PO DAILY 04/29/19 02/13/24 History cholecalciferol (vitamin D3) 25 125 mcg PO DAILY 02/01/22 02/17/24 History mcg (1,000 unit) capsule metformin 500 mg tablet 250 mg (1/2 x 500 mg) PO QHS #90 08/14/22 02/16/24 Rx tabs gabapentin 300 mg capsule See Rx Instructions .Route 03/19/23 02/17/24 Rx .COMPLEX #30 caps rosuvastatin 10 mg tablet 10 mg PO DAILY #90 tabs 11/14/23 02/17/24 Rx lisinopril 20 mg tablet 20 mg PO DAILY #90 tabs 12/09/23 02/18/24 Rx metoprolol succinate 50 mg 50 mg PO QDAY #90 tabs 12/23/23 02/17/24 Rx tablet,extended release 24 hr glipizide 10 mg tablet, extended 10 mg PO DAILY #90 tabs 02/04/24 02/17/24 Rx release 24 hr lorazepam 1 mg tablet 1 mg PO TID PRN anxiety 90 days 02/10/24 02/18/24 Rx #90 tabs furosemide 40 mg tablet 40 mg PO DAILY #90 TABLETS 02/11/24 02/17/24 Rx metformin 500 mg tablet See Rx Instructions .Route 02/11/24 02/17/24 Rx .COMPLEX #120 tabs Allergy/AdvReac Type Severity Reaction Status Date / Time shellfish derived Allergy Severe Anaphylaxis Verified 02/18/24 07:31 shrimp Allergy Severe Anaphylaxis Verified 02/18/24 07:31 iodine Allergy Unknown Unknown Verified 02/18/24 07:31 Family History Mother Hypertension Heart disease Diabetes Father Hypertension Sister Kidney disease Lung cancer Epilepsy Surgical History History of colonoscopy History of extraction of renal calculus History of tonsillectomy History of left knee surgery Social History household members: spouse current occupational status: retired Smoking Status: Never smoker alcohol intake: current alcohol intake frequency: holidays/special occasions only substance use type: does not use Review of Systems (Anesthesia) ROS Narrative System reviewed and no additional complaints, except as documented.
--- NOTE | 2024-02-18 08:14 | HP.PCM_ITS ---
HPI - General General Date of Admission: 02/18/24 Date of Service: 02/18/24 Chief Complaint: Colon cancer screening HPI Narrative JULIUS DURANT, is a 68 M who presents today for screening colonoscopy. His last colonoscopy was about 10 years ago. No personal or family history of colon cancer or colon polyps. No recent GI issues or problems such as black or tarry stools or blood with bowel movements. [facility] Medical History Wears glasses Gout High cholesterol Kidney stones Non-smoker CPAP (continuous positive airway pressure) dependence Sleep apnea Asthma Injury of back Stroke (~2002) Diabetes Hypertension Anxiety Home Medications ?Medication ?Instructions ?Recorded ?Last Taken ?Type aspirin 325 mg tablet 325 mg PO DAILY 04/29/19 02/13/24 History cholecalciferol (vitamin D3) 25 125 mcg PO DAILY 02/01/22 02/17/24 History mcg (1,000 unit) capsule metformin 500 mg tablet 250 mg (1/2 x 500 mg) PO QHS #90 08/14/22 02/16/24 Rx tabs gabapentin 300 mg capsule See Rx Instructions .Route 03/19/23 02/17/24 Rx .COMPLEX #30 caps rosuvastatin 10 mg tablet 10 mg PO DAILY #90 tabs 11/14/23 02/17/24 Rx lisinopril 20 mg tablet 20 mg PO DAILY #90 tabs 12/09/23 02/18/24 Rx metoprolol succinate 50 mg 50 mg PO QDAY #90 tabs 12/23/23 02/17/24 Rx tablet,extended release 24 hr glipizide 10 mg tablet, extended 10 mg PO DAILY #90 tabs 02/04/24 02/17/24 Rx release 24 hr lorazepam 1 mg tablet 1 mg PO TID PRN anxiety 90 days 02/10/24 02/18/24 Rx #90 tabs furosemide 40 mg tablet 40 mg PO DAILY #90 TABLETS 02/11/24 02/17/24 Rx metformin 500 mg tablet See Rx Instructions .Route 02/11/24 02/17/24 Rx .COMPLEX #120 tabs Allergy/AdvReac Type Severity Reaction Status Date / Time shellfish derived Allergy Severe Anaphylaxis Verified 02/18/24 07:31 shrimp Allergy Severe Anaphylaxis Verified 02/18/24 07:31 iodine Allergy Unknown Unknown Verified 02/18/24 07:31 Family History Mother Hypertension Heart disease Diabetes Father Hypertension Sister Kidney disease Lung cancer Epilepsy Surgical History History of colonoscopy History of extraction of renal calculus History of tonsillectomy History of left knee surgery Social History household members: spouse current occupational status: retired Smoking Status: Never smoker alcohol intake: current alcohol intake frequency: holidays/special occasions only substance use type: does not use Vital Signs Vital Signs Vital Signs: 02/18/24 07:34 02/18/24 07:34 02/18/24 07:41 Temperature 97.2 F L 97.2 F L Temperature Source Temporal Pulse Rate 65 65 Respiratory Rate 18 18 Respiratory Pattern Normal Blood Pressure 126/79 H 126/79 H Blood Pressure Mean 94 Blood Pressure Source Monitor Blood Pressure Position Semi-Fowlers Blood Pressure Location Right Arm Pulse Ox 98 98 Oxygen Delivery Method Room Air Weight Weight: 229 lb 3.2 oz Body Mass Index (BMI) 33.8 Physical Exam Const alert and oriented x3 HEENT normocephalic Resp normal respiratory effort GI normal to inspection, nondistended, normoactive bowel sounds Assessment & Plan Assessment/Plan (1) Encounter for screening for malignant neoplasm of colon: PLAN: Plan 68-year-old male in need of a screening colonoscopy. His last colonoscopy was about 10 to 12 years ago. No previous polyps. No GI symptoms currently. Charges/Coding Visit Charges Inpatient E&M: 52110 Init Hosp L1
--- NOTE | 2024-02-18 08:15 | COLBX_PTH ---
PATIENT: JULIUS DURANT Jr. LOC: EN U#:[id number] AGE/SX: 68/M ROOM: RE02/18/[address]: Dr. Chano Charles MD : 1955 BED: DIS: 02/18/2024 SPEC #: [id number] RECD: 02/18/24 10:59 STATUS: GEORGETTE LOPEZ #: [id number] MESFIN: 02/18/24 08:[address]: Chano Charles DEPT: SURGICAL PATHOLOGY RECD BY: Marium Babb ENTERED: 02/18/24 12:38 SP TYPE: COLON BX OTHR DR: Dr. Feng Flanagan DO Tissues: Ascending colon Procedures: Surgery Specimen Level IV HEADER OPERATION: Colonoscopy with biopsies and polypectomy PRE-OP DIAGNOSIS: Encounter for screening for malignant neoplasm of colon TISSUE SUBMITTED: Ascending colon polyp x2 biopsies and cold snare MICROSCOPIC DIAGNOSIS Ascending colon polyp x2, biopsy and polypectomy: Fragments of tubular adenoma. Gunjan 02/19/2024 MICROSCOPIC DESCRIPTION Slides are reviewed. GROSS DESCRIPTION Received in fixative is one container labeled with the patient's name and designated Ascending colon polyp x2. The specimen consists of multiple irregular fragments of light akhtar soft tissue that in aggregate measure 2.0 x 0.3 x 0.1 cm. The specimen is totally submitted in one cassette. 02/18/2024 TC:1 CPT:11531
[2024-02-18 08:36] LABS: Bedside Glucose 208 mg/dL (74-106)
--- NOTE | 2024-02-18 09:09 | OP.COLON_ITS ---
Patient Name: Mendez Garnica Procedure Date: 02/18/2024 8:05 AM Date of : 1955 Age: 68 Procedure: Colonoscopy Indications: Screening for colorectal malignant neoplasm Providers: Chano Charles MD Referring MD: Chano Charles MD Medicines: Propofol per Anesthesia Patient Profile: Refer to note in patient chart for documentation of history and physical. Last Colonoscopy: more than 10 years ago. Complications: No immediate complications. Estimated blood loss: Minimal. Procedure: Pre-Anesthesia Assessment: - Prior to the procedure, a History and Physical was performed, and patient medications and allergies were reviewed. The patient's tolerance of previous anesthesia was also reviewed. The risks and benefits of the procedure and the sedation options and risks were discussed with the patient. All questions were answered, and informed consent was obtained. Prior Anticoagulants: The patient has taken no anticoagulant or antiplatelet agents. ASA Grade Assessment: II - A patient with mild systemic disease. After reviewing the risks and benefits, the patient was deemed in satisfactory condition to undergo the procedure. After I obtained informed consent, the scope was passed under direct vision. Throughout the procedure, the patient's blood pressure, pulse, and oxygen saturations were monitored continuously. The adult colonoscope was introduced through the anus and advanced to the cecum, identified by appendiceal orifice and ileocecal valve. The ileocecal valve, appendiceal orifice, and rectum were photographed. The entire colon was well visualized. The colonoscopy was performed without difficulty. The patient tolerated the procedure well. The quality of the bowel preparation was adequate. Moderate Sedation: See the other procedure note for documentation of moderate sedation with intraservice time. Scope In: 8:29:51 AM Scope Withdrawal Time 0 hours 13 minutes 39 seconds Scope Out: 9:01:10 AM Total Procedure Duration Time 0 hours 31 minutes 19 seconds Findings: The perianal and digital rectal examinations were normal. Multiple small-mouthed diverticula were found in the sigmoid colon. A 3 mm polyp was found in the ascending colon. The polyp was semi-sessile. The polyp was removed with a cold biopsy forceps. Resection and retrieval were complete. Verification of patient identification for the specimen was done by the quality systems technician using the patient's name, date and medical record number. Estimated blood loss was minimal. A 7 mm polyp was found in the ascending colon. The polyp was semi-sessile. The polyp was removed with a cold snare. Resection and retrieval were complete. Verification of patient identification for the specimen was done by the quality systems technician using the patient's name, date and medical record number. Estimated blood loss was minimal. Hemorrhoids were found during endoscopy. The hemorrhoids were mild. The exam was otherwise without abnormality. Impression: - Diverticulosis in the sigmoid colon. - One 3 mm polyp in the ascending colon, removed with a cold biopsy forceps. Resected and retrieved. - One 7 mm polyp in the ascending colon, removed with a cold snare. Resected and retrieved. - Hemorrhoids. - The examination was otherwise normal. Recommendation: - Discharge patient to home (ambulatory). - High fiber diet indefinitely. - Await pathology results. - Repeat colonoscopy in 3 - 5 years for surveillance. - Return to my office PRN. - Continue present medications. Procedure Code(s): --- Professional --- 95973, Colonoscopy, flexible; with removal of tumor(s), polyp(s), or other lesion(s) by snare technique 29803, 59, Colonoscopy, flexible; with biopsy, single or multiple Diagnosis Code(s): --- Professional --- Z12.11, Encounter for screening for malignant neoplasm of colon K64.9, Unspecified hemorrhoids K57.30, Diverticulosis of large intestine without perforation or abscess without bleeding D12.2, Benign neoplasm of ascending colon CPT copyright 2021 [employer]. All rights reserved. The codes documented in this report are preliminary and upon home assessment nurse review may be revised to meet current compliance requirements. Chano Charles MD 02/18/2024 9:08:43 AM This report has been signed electronically. Number of Addenda: 0 Note Initiated On: 02/18/2024 8:05 AM
--- NOTE | 2024-02-18 09:09 | OP.CCLET_ITS ---
02/18/2024 Feng Flanagan Re : Colonoscopy procedure for Mendez Garnica Dear Dr. Flanagan This procedure was performed on Sunday, February 18, 2024. My impressions and recommendations are as follows: Impressions : - Diverticulosis in the sigmoid colon. - One 3 mm polyp in the ascending colon, removed with a cold biopsy forceps. Resected and retrieved. - One 7 mm polyp in the ascending colon, removed with a cold snare. Resected and retrieved. - Hemorrhoids. - The examination was otherwise normal. Recommendations : - Discharge patient to home (ambulatory). - High fiber diet indefinitely. - Await pathology results. - Repeat colonoscopy in 3 - 5 years for surveillance. - Return to my office PRN. - Continue present medications. My findings are described in the full procedure note, which is enclosed. If I can be of further assistance, please feel free to contact me at . Sincerely, Chano Charles MD 02/18/2024 9:08:43 AM This report has been signed electronically.
--- NOTE | 2024-02-18 09:13 | PCM.POST.ANE ---
Anesthesia: Postop Eval I Current Vital Signs Temperature: 97.9 F Pulse Rate: 71 Blood Pressure: 91/52 Respiratory Rate: 16 Pulse Ox: 96 Oxygen Delivery Method: Room Air Assessment Airway patent: Yes Spontaneous unlabored respirations: Yes Mental status: Asleep nausea: No Vomiting: No Anesthesia Complication: No Fluid Hydration Crystalloid volume administer (ml): 800 Total IV fluid infused: 800 Progress Note Anesthesia document: Postop Eval 1 completed: Yes
--- NOTE | 2024-02-18 09:29 | PCM.POSTANE2 ---
Anesthesia Postop Eval I Sum Postop Eval Completion status Anesthesia document: Postop Eval 1 completed: Yes Anesthesia Postop Eval I Summary Anesthesia Postop Eval I Summary: Anesthesia Postop Eval I: Assessment Summary Airway patent Yes 02/18/24 09:13 [email or web address] Spontaneous unlabored Yes 02/18/24 09:13 [email or web address] respirations Mental status Asleep 02/18/24 09:13 [email or web address] nausea No 02/18/24 09:13 [email or web address] Vomiting No 02/18/24 09:13 [email or web address] Anesthesia Postop Eval I: Fluid Summary Crystalloid volume administer 800 02/18/24 09:13 [email or web address] (ml) Colloids volume administered ( ml) Blood Product volume administered (ml) Total IV fluid infused 800 02/18/24 09:13 [email or web address] Anesthesia Postop Eval I: Summary Notes Anesthesia Complication No 02/18/24 09:13 [email or web address] Anesthesia Complication Comment: Post-operative progress note Anesthesia: Postop Eval II Evaluation Mental status: Awake and Calm Pain Level: 0 nausea: No Vomiting: No Complications Anesthesia Complication: No
== END 2024-02-18 09:51 | disposition home or self-care (01) ==
LOC: EN 07:05 → AC 07:06
PROVIDERS: PCP Family Medicine; Referring Provider Family Medicine; Visit Provider Surgery
PROC: 0DJD8ZZ Inspection of Lower Intestinal Tract, Via Natural or Artificial Opening Endoscopic (ICD-10-PCS; CPT 45378; principal; 2024-02-18 08:10)
DX: Z12.11 Encounter for screening for malignant neoplasm of colon (principal); E11.9 Type 2 diabetes mellitus without complications; K64.9 Unspecified hemorrhoids; Z79.84 Long term (current) use of oral hypoglycemic drugs; Z79.82 Long term (current) use of aspirin; K57.30 Diverticulosis of large intestine without perforation or abscess without bleeding; I10 Essential (primary) hypertension; E78.00 Pure hypercholesterolemia, unspecified; J45.909 Unspecified asthma, uncomplicated; D12.2 Benign neoplasm of ascending colon
CPT/HCPCS: 45385; 45380; 82962; 88305; J7120; J2405

== ENCOUNTER → 2024-08-04 | Outpatient (CLI) | payer BC, SELFPAY ==
[2024-08-04 12:28] LABS: Erythrocyte Sedimentation Rate 62 mm/hr (0-20)
[2024-08-04 12:30] LABS: Absolute Lymphocyte Count 1.25 X10^3/uL (0.83-4.51); Basophil# 0.05 X10^3/uL; Basophil% 0.5 % (0-1); Eosinophil# 0.31 X10^3/uL; Eosinophils% 2.8 % (0-5); Hematocrit 39.1 % (40-54); Hemoglobin 13.2 g/dL (13.0-16.5); Lymphocyte # 1.25 X10^3/ul (0.83-4.51); Lymphocyte % 11.3 % (19-41); Mean Corp Hgb Conc 33.8 g/dL (32-36); Mean Corpuscular Hgb 29.5 pg (27.0-32.0); Mean Corpuscular Volume 87.5 fL (80-94); Mean Platelet Vol. 10.5 fl (6.2-12.0); Monocyte% 12.7 % (0-10); NRBC Flagged by Analyzer 0 % (0-5); Neutrophil # 7.96 X10^3/uL (2.7-7.7); Neutrophil % 72.2 % (47-70); Platelet Count 287 K/mm3 (150-450); RBC Distribution Width CV 12.3 % (11.6-14.6); RBC Distribution Width SD 39.6 fl (35.1-43.9); Red Blood Count 4.47 M/mm3 (4.6-6.2)
[2024-08-04 12:42] LABS: AST(SGOT) 12 U/L (<=37); Alanine Aminotransfer ALT/SGPT 14 U/L (<=46); Albumin, Serum 3.9 g/dL (3.4-4.8); Alkaline Phosphatase 107 U/L (40-129); Anion Gap 13 (5-15); BUN 34 mg/dL (4-19); Calcium,Total 9.8 mg/dL (7.6-11.0); Carbon Dioxide 24.9 mmol/L (21.0-32.0); Chloride 94 mmol/L (98-108); Cholesterol 132 mg/dL (<=200); Creatinine, Serum 1.49 mg/dL (0.70-1.20); EST Glomerular Filtration Rate 51 (>60); Globulin 3.8 g/dL (2.2-4.2); Glucose 316 mg/dL (70-99); High Density Lipoprotein 39 mg/dL; Low Density Lipoprotein Calc. 63 mg/dL; Potassium 4.9 mmol/L (3.3-5.1); Protein, Total 7.7 g/dL (5.9-8.4); Sodium Level 132 mmol/L (133-145); Total Bilirubin 0.34 mg/dL (0.00-1.30); Triglycerides 151 mg/dL; Uric Acid 8.9 mg/dL (3.5-7.2); Very Low Density Lipoprotein 30 mg/dL (5-40); cholesterol:hdl ratio screen 3.43
[2024-08-04 15:30] LABS: Microalbumin,Random Urine 27.4 mg/L (NO RANGE EST.); Microalbumin:Creatinine Ratio 173.4 mg/g CRE
== END | disposition home or self-care (01) ==
LOC: BIMLAB 10:40
PROVIDERS: PCP Family Medicine; Referring Provider Family Medicine; Visit Provider Family Medicine
DX: E11.8 Type 2 diabetes mellitus with unspecified complications (principal); I10 Essential (primary) hypertension; M10.9 Gout, unspecified
CPT/HCPCS: 36415; 80053; 80061; 82043; 82570; 84550; 85025; 85652

== ENCOUNTER → 2025-02-17 | Outpatient (CLI) | payer BC, SELFPAY | END | disposition home or self-care (01) | PROVIDERS: PCP Family Medicine; Referring Provider Family Medicine; Visit Provider Family Medicine | DX: L02.11 Cutaneous abscess of neck (principal) | CPT/HCPCS: 87070; 87205 ==